=== PATIENT | female | born 2000 | race Two or more races ===

== ENCOUNTER 2024-05-31 18:45 | Outpatient (CLI) | payer OTHER ==
[~2024-05-31] VITALS: Ht 157.5 cm; Wt 112.7 kg
[2024-05-31 19:06] VITALS: BP 113/65
[2024-05-31] MEDS ORDERED: UNIS25TA3 PO (19:09)
[2024-05-31] MEDS ORDERED: PRENTAB9 PO (19:09)
[2024-05-31] MEDS ORDERED: HOME MED LIST COMPLETE! XX SCH (19:35)
[2024-05-31 20:33] LABS: AMORPHOUS SEDIMENT SMALL (NEGATIVE); APPEARANCE, URINE CLOUDY (CLEAR); BACTERIA, URINE AUTO NEGATIVE (NEGATIVE); BILIRUBIN, URINE AUTO NEGATIVE (NEGATIVE); BLOOD, URINE BLOOD NEGATIVE (NEGATIVE); CALCIUM OXALATE CRYSTALS SMALL; COLOR, URINE YELLOW (YELLOW); GLUCOSE, URINE (UA) AUTO NEGATIVE (NEGATIVE); KETONE, URINE AUTO NEGATIVE (NEGATIVE); LEUKOCYTE ESTERASE, URINE AUTO 1+ (NEGATIVE); MUCUS, URINE SMALL (NEGATIVE); NITRITE, URINE AUTO NEGATIVE (NEGATIVE); PROTEIN, URINE AUTO NEGATIVE (NEGATIVE); RBC, URINE AUTO 2 /HPF (0-3); SPECIFIC GRAVITY URINE AUTO 1.021 (1.002-1.035); SQUAMOUS EPITHELIAL CELL UR AU 7 /HPF (0-6); UROBILINOGEN, URINE AUTO 0.2 mg/dL (0.0-2.0); WBC, URINE AUTO 7 /HPF (0-3)
[2024-05-31 21:20] VITALS: BP 115/58
[2024-06-17] MEDS ORDERED: OXYC1TAB23 PO (19:19)
[2024-06-17] MEDS ORDERED: IBUP80TA PO (19:19)
[2024-06-17] MEDS ORDERED: COLA100C5 PO (19:20)
== END 2024-05-31 22:08 | disposition home or self-care (01) ==
LOC: M LDO 18:45
PROVIDERS: ATTEND Advanced Practice Midwife
DX: O47.03 False labor before 37 completed weeks of gestation, third trimester (principal); O09.213 Supervision of pregnancy with history of pre-term labor, third trimester; Z87.59 Personal history of other complications of pregnancy, childbirth and the puerperium; Z3A.36 36 weeks gestation of pregnancy
CPT/HCPCS: 59025; 81001; 87081; G0463

== ENCOUNTER 2024-06-03 18:27 | Outpatient (CLI) | payer OTHER ==
[~2024-06-03] VITALS: Ht 160 cm; Wt 111.8 kg
[~2024-06-03 18:27] MED LIST: PRENTAB9 PO; UNIS25TA3 PO
[2024-06-03 19:43] VITALS: BP 113/62
== END 2024-06-03 19:43 | disposition home or self-care (01) ==
LOC: M LDO 18:27
PROVIDERS: ATTEND Advanced Practice Midwife
DX: O47.03 False labor before 37 completed weeks of gestation, third trimester (principal); O09.293 Supervision of pregnancy with other poor reproductive or obstetric history, third trimester; O36.63X0 Maternal care for excessive fetal growth, third trimester, not applicable or unspecified; Z3A.37 37 weeks gestation of pregnancy; Z87.59 Personal history of other complications of pregnancy, childbirth and the puerperium

== ENCOUNTER 2024-12-22 20:45 | Emergency (ER) | payer OTHER ==
[~2024-12-22] VITALS: Ht 160 cm; Wt 104.5 kg
[~2024-12-22 20:45] MED LIST changes: +COLA100C5 PO; +IBUP80TA PO; +OXYC1TAB23 PO
[2024-12-22 22:50] VITALS: BP 128/61; TEMP 97.2; O2SAT 96
== END 2024-12-23 01:07 | disposition left against medical advice (07) ==
LOC: M ED 20:45
DX: Z53.21 Procedure and treatment not carried out due to patient leaving prior to being seen by health care provider (principal)